=== PATIENT | male | born 1970 | race African-American/Black ===

== ENCOUNTER 2020-06-12 16:43 | Emergency (ER) | payer OTHER ==
[2020-06-12] MEDS ORDERED: CYCLOBENZAPRINE HCL 10 MG TABLET PO ONE (17:49)
[2020-06-12] MEDS ORDERED: KETOROLAC TROMETHAMINE 60 MG/2 ML SDV IM ONE (17:49)
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
[2020-06-12 19:46] VITALS: BP 148/88
== END 2020-06-12 19:44 | disposition home or self-care (01) ==
LOC: ER 16:43
DX: S16.1XXA Strain of muscle, fascia and tendon at neck level, initial encounter (principal); S39.012A Strain of muscle, fascia and tendon of lower back, initial encounter; M54.6 Pain in thoracic spine; V44.5XXA Car driver injured in collision with heavy transport vehicle or bus in traffic accident, initial encounter; I10 Essential (primary) hypertension
CPT/HCPCS: 99284; 96372; 72040; 72070; J1885